=== PATIENT | male | born 1955 | race Caucasian/White ===

== ENCOUNTER 2019-08-10 22:43 | Emergency (ER) | payer BC, OTHER ==
[~2019-08-10] VITALS: Ht 177.8 cm; Wt 77.1 kg
[2019-08-10] MEDS ORDERED: LISINOPRIL2.5 MG PO (23:24)
[2019-08-10 23:38] VITALS: BP 140/84
== END 2019-08-10 23:40 | disposition home or self-care (01) ==
LOC: ER 22:43
DX: S01.01XA Laceration without foreign body of scalp, initial encounter (principal); I10 Essential (primary) hypertension; Z98.890 Other specified postprocedural states; W10.8XXA Fall (on) (from) other stairs and steps, initial encounter; Y93.89 Activity, other specified; Y92.89 Other specified places as the place of occurrence of the external cause; Y99.8 Other external cause status

== ENCOUNTER 2019-12-15 14:56 | Emergency (ER) | payer BC, OTHER ==
[~2019-12-15] VITALS: Ht 177.8 cm; Wt 78.0 kg
[~2019-12-15 14:56] MED LIST: LISINOPRIL2.5 MG PO
[2019-12-15 15:40] LABS: ABSOLUTE NEUTROPHILS 12.3 thou/uL (1.4-8.2); BASOPHILS 0.8 % (0.0-2.0); EOSINOPHILS 0.1 % (0.0-3.0); HEMATOCRIT 44.1 % (42.0-52.0); MCH 31.4 pg (26.0-34.0); MCHC 34.1 g/dL (28.0-37.0); PLATELET COUNT 240 thou/uL (150-400); POLYS 88.1 % (36.0-66.0); RDW 12.6 % (10.5-14.5)
[2019-12-15 15:50] LABS: ANION GAP 9 mmol/L (7-16); BUN 23 mg/dL (7-18); CALCIUM 9.3 mg/dL (8.5-10.1); CHLORIDE 100 mmol/L (98-107); CO2 25 mmol/L (21-32); CREATININE 1.1 mg/dL (0.7-1.3); GLUCOSE 106 mg/dL (74-106); SODIUM 134 mmol/L (136-145)
[2019-12-15 15:58] LABS: TROPONIN-I <0.06 ng/mL (<0.06)
[2019-12-15 16:40] VITALS: BP 116/72
--- NOTE | 2019-12-16 08:32 | EKG ---
[facility] [place] [address] ELECTROCARDIOGRAM REPORT Name: SHELLEY CARRIZALES Room #: [facility]#: [id number] Admission: 12/15/19 Attend Phys: Discharge: 12/15/19 Date of : 59 Report #: [id number] THIS REPORT FOR: cc: Estevan Jacome MD, Mark L. MD Lundgren,Jose Alberto Veliz MD [facility] ~ THIS REPORT FOR: //name// [facility] ED Test Date: 2019-12-15 Test Time: 15:31:53 Pat Name: SHELLEY CARRIZALES Department: Room: Gender: Stone Hand: [facility] : 1955 Requested By: Ralph Braun Order Number: [id number] MD: Jose Alberto Chowdhury Measurements Intervals [place] Rate: 83 P: 28 DE: 151 QRS: 20 QRSD: 83 T: 13 QT: 375 QTc: 441 Interpretive Statements Sinus rhythm No significant abnormality No previous ECG available for comparison Electronically Signed On 12-16-2019 8:30:31 CDT by Jose Alberto Chowdhury [email or web address] <ELECTRONICALLY SIGNED> By: Jose Alberto Chowdhury MD, [facility] 12/16/19 0830 30 30 Jose Alberto Chowdhury MD, FACC /EPI
== END 2019-12-15 16:40 | disposition home or self-care (01) ==
LOC: ER 14:56
PROVIDERS: Emergency Medicine
DX: R07.81 Pleurodynia (principal); R06.02 Shortness of breath; I10 Essential (primary) hypertension; Z98.890 Other specified postprocedural states; Z79.899 Other long term (current) drug therapy